=== PATIENT | male | born 1990 | race Caucasian/White ===

== ENCOUNTER 2019-12-28 12:59 | Inpatient (IN) | payer BC, SELFPAY ==
[~2019-12-28 12:59] MED LIST: Iopamidol-370 76% 500 ML 1 ML ONE
[2019-12-28 15:11] VITALS: BMI 26.7
[2019-12-28] MEDS ORDERED: Acetaminophen 325 MG TAB PO PRN (15:16)
[2019-12-28] MEDS ORDERED: Senokot S 8.6-50 MG TAB PO PRN (15:16)
[2019-12-28] MEDS ORDERED: Fentanyl 100 MCG/2 ML VIAL SLOW IVP PRN ×2 (15:19)
[2019-12-28] MEDS ORDERED: Melatonin 3 MG TAB PO PRN (15:22)
[2019-12-28] MEDS: Fentanyl 100 MCG/2 ML VIAL SLOW IVP PRN ×2 (16:00→20:47)
[2019-12-28] MEDS: Sodium Chloride 0.9% 1,000 ML IV SCH (16:00)
[2019-12-28] MEDS ORDERED: Morphine 2 MG/ML VIAL SLOW IVP PRN (16:31)
--- NOTE | 2019-12-28 16:53 | PDOC.HHP ---
Hospitalist HPI - History of Present Illness Epigastric pain History of Present Illness: 29M presents as a transfer from [place] ED for evaluation of epigastic pain x3 days. Reports he noticed some pain after he ate to his epigastric area on but did not feel like the last episode of pancreatitis he had in the past. He reports he ate chips last night and went to bed. When he woke up around 5am, he was nauseated with more pain which wrapped around his abdomen. He reports x1 vomiting. Pain has increased and he reports the pain medicine he received in the ED in [place] only lasted about an hour. His lab work in the ED indicted possible pancreatitis with lipase = 414. Patient reports he drinks alcohol, about 10 drinks per day but has not had any since . Patient was transferred to [place] for admission and further evaluation. Hospitalist ROS - Review of Systems Constitutional: denies: fever, chills, sweats, weakness, malaise, other Eyes: denies: pain, vision change, conjunctivae inflammation, eyelid inflammation, redness, other ENT: denies: ear pain, ear discharge, nose pain, nose discharge, nose congestion, mouth pain, mouth swelling, throat pain, throat swelling, other Respiratory: reports: shortness of breath (Due to epigastric pain) Cardiovascular: denies: chest pain, palpitations, orthopnea, paroxysmal noc. dyspnea, edema, light headedness, other Gastrointestinal: reports: nausea, vomiting, abdominal pain Genitourinary: denies: dysuria, frequency, incontinence, hematuria, retention, other Musculoskeletal: denies: neck pain, shoulder pain, arm pain, back pain, hand pain, leg pain, foot pain, other Skin: denies: rash, lesions, lilliana, bruising, other Neurological: denies: weakness, numbness, incoordination, change in speech, confusion, seizures, other - Medication Medications: Active Medications Generic Name Dose Route Start Last Admin Trade Name Freq PRN Reason Stop Dose Admin Sodium Chloride 1,000 mls @ 100 mls/hr 12/28/19 15:30 12/28/19 16:00 Normal Saline 0.9% IV 1,000 mls .Q10H MAXIMILIANO Administration Hospitalist History - Past Medical History Hepatobiliary: reports: Other Endocrine: reports: Other (hx of pancreatitis) - Social History Smoking Status: Current every day smoker Alcohol: reports: Heavy Drugs: reports: none Living Situation: With Family - Exam General Appearance: awake alert General - other findings: Mild pain distress Eye: PERRL ENT: normocephalic atraumatic Neck: supple, symmetric Heart: RRR, no murmur Respiratory: CTAB, normal chest expansion Gastrointestinal: soft, tender to palpation (epigastric), voluntary guarding Extremities: no edema Skin: normal turgor Neurological: cranial nerve grossly intact Musculoskeletal: normal tone, normal strength Psychiatric: normal affect, A&O x 3 Hospitalist H&P A/P - Problem (1) Pancreatitis, alcoholic, acute Code(s): K85.20 - ALCOHOL INDUCED ACUTE PANCREATITIS WITHOUT NECROSIS OR INFCT Status: Acute (2) Smoker Code(s): F17.200 - NICOTINE DEPENDENCE, UNSPECIFIED, UNCOMPLICATED Status: Chronic (3) Alcohol abuse Code(s): F10.10 - ALCOHOL ABUSE, UNCOMPLICATED Status: Chronic - Plan Plan: #Pancreatitis - U/S RUQ - CT Abd/pelvis w/ contrast - pain medication - NPO - recheck labs in AM - IVF NS 100ml/hr with banana bag per day - ASE protocol PUD prevention; SCDs for DVT prevention Smoking cessation Case discussed with Dr. Singh, agrees to plan
[2019-12-28] MEDS: Morphine 4 MG/ML VIAL SLOW IVP PRN ×2 (16:55→22:42)
--- NOTE | 2019-12-28 17:17 | ULT ---
RIGHT UPPER QUADRANT ULTRASOUND: History: Epigastric pain radiating to the back, nausea, vomiting. Pancreatitis. FINDINGS: The liver, gallbladder, and visualized portions of the pancreas are unremarkable. The common duct rafa sures 3 mm in diameter. There is a 3 cm cyst arising from the superior pole of the right kidney. No f ree fluid is seen in the Taylor's pouch. IMPRESSION: 1. No evidence of cholelithiasis. 2. Right renal cyst. POS: OFF
--- NOTE | 2019-12-28 17:22 | CT ---
CT ABDOMEN WITH CONTRAST CT PELVIS WITH CONTRAST: DATE: 12/28/2019 HISTORY: 29-year-old male with severe abdominal pain, nausea, and vomiting COMPARISON: None TECHNIQUE: IV injection of iodinated contrast media: administered. Oral contrast media:Not administered FINDINGS: There is mild fat stranding consistent with edema around the pancreatic head, body, and uncinate proc ess. The fat stranding representing edema also involves the central upper portion of the mesentery. There is a short linear band of moderate hypodensity at the junction between the body and tail of the pancreas. Exact etiology uncertain, but perhaps this could be focal dilation of the pancreatic duct caliber of 4 mm. No evidence of pseudocyst. Diffusely low hepatic attenuation may or not represent fatty liver. There is a 2.5 cm right renal upper pole cyst. Normal appendix, left kidney, abdominal aorta, adrenals, spleen, and urinary bladder. Small amount of free fluid within the pelvic cavity, probably arising from the upper abdomen. No colonic diverticulitis, small bowel dilation, pneumoperitoneum, pleural effusion, or basilar lower lobe pulmonary consolidation. IMPRESSION: 1. Peripancreatic and mesenteric edema: Evidence for acute pancreatitis. Recommend correlation with s yesica lipase and amylase. 2. Questionable focal dilation of a portion of pancreatic duct. Recommend follow-up..
[2019-12-28] MEDS: Multivitamins, Adult 10 ML, Folic Acid 1 MG, Thiamine HCl 100 MG in Dextrose 5 %-0.45 %... IV SCH (18:32)
[2019-12-28] MEDS: Lorazepam 2 MG/ML VIAL SLOW IVP PRN (18:36)
[2019-12-28] MEDS: Famotidine 20 MG TAB PO SCH (20:59)
[2019-12-29] MEDS: Lorazepam 2 MG/ML VIAL SLOW IVP PRN ×3 (00:45→20:28)
[2019-12-29] MEDS: Fentanyl 100 MCG/2 ML VIAL SLOW IVP PRN ×3 (02:58→17:39)
[2019-12-29] MEDS: Sodium Chloride 0.9% 1,000 ML IV SCH ×2 (05:11→11:29)
[2019-12-29] MEDS: Morphine 4 MG/ML VIAL SLOW IVP PRN ×6 (05:21→21:45)
[2019-12-29 06:20] LABS: #Eosinphils 0.1 thou/uL (0.0-0.7); #Monocytes 0.9 thou/uL (0.11-0.59); #Neutrophils 6.9 thou/uL (1.40-6.50); %Basophils 0.1 % (0.0-1.0); %Eosinophils 1.5 % (0.0-10.0); %Lymphocytes 11.6 % (21.0-51.0); %Monocytes 9.7 % (0.0-10.0); %Neutrophils 77.1 % (42.0-75.0); Mean Corpuscular HGB CONC 35.9 g/dL (32.0-36.0); Mean Corpuscular Hemoglobin 33.4 pg (27.0-31.0); Mean Corpuscular Volume 93.1 fL (78.0-98.0); Mean Platelet Volume 7.5 fL (7.4-10.4); Platelet Count 183 thou/uL (130-400); RBC Distribution Width 10.6 % (11.5-14.5); White Blood Cell (WBC) Count 8.9 thou/uL (4.8-10.8)
[2019-12-29 06:43] LABS: Albumin 4.2 g/dL (3.5-5.0); Alkaline Phosphatase 60 U/L (40-110); Anion Gap 14 mmol/L (10-20); BUN (Urea Nitrogen) 12 mg/dL (8.9-20.6); Bilirubin, Total 0.5 mg/dL (0.2-1.2); Calc. Creatinine Clearance 149 mL/min (70-130); Calcium 9.3 mg/dL (7.8-10.44); Carbon Dioxide 24 mmol/L (22-29); Chloride 104 mmol/L (98-107); Estimated GFR-MDRD Greater than 90; Globulin 2.8 g/dL (2.4-3.5); Glucose 117 mg/dL (70-105); Potassium 3.7 mmol/L (3.5-5.1); Sodium 138 mmol/L (136-145)
[2019-12-29 06:44] LABS: ALT (SGPT) 25 U/L (8-55); AST (SGOT) 20 U/L (5-34); Lipase 183 U/L (8-78)
[2019-12-29] MEDS: Famotidine 20 MG TAB PO SCH ×2 (08:07→20:22)
[2019-12-29] MEDS ORDERED: hydrALAZINE 20 MG/ML VIAL SLOW IVP PRN (10:23)
[2019-12-29] MEDS ORDERED: Labetalol HCl 100 MG/20 ML VIAL SLOW IVP PRN (10:23)
--- NOTE | 2019-12-29 10:37 | PDOC.HOSPP ---
- Subjective Encounter Date: 12/29/19 Encounter Time: 10:24 Subjective: pain meds not adequate. asked for dilaudid - Objective Vital Signs & Weight: Vital Signs (12 hours) Temp Pulse Resp BP Pulse Ox 12/29/19 08:00 97 12/29/19 07:28 98.5 F 55 L 20 170/102 H 97 12/29/19 05:30 98.7 F 56 L 18 156/94 H 95 12/29/19 00:45 98.3 F 58 L 16 158/93 H 98 Weight Weight 186 lb 9.6 oz Result Diagrams: 12/29/19 05:58 12/29/19 05:58 Hospitalist ROS - Medication Medications: Active Medications Generic Name Dose Route Start Last Admin Trade Name Freq PRN Reason Stop Dose Admin Famotidine 20 mg 12/28/19 21:00 12/29/19 08:07 Famotidine 20 Mg Tab PO 20 mg BID MAXIMILIANO Administration Fentanyl 25 mcg 12/28/19 16:32 12/29/19 08:07 Fentanyl 100 Mcg/2 Ml Vial SLOW IVP 25 mcg Q2H PRN Administration Breakthrough Pain Sodium Chloride 1,000 mls @ 100 mls/hr 12/28/19 15:30 12/29/19 05:11 Normal Saline 0.9% IV 1,000 mls .Q10H MAXIMILIANO Administration Multivitamins 10 ml/ Folic 1,011.2 mls @ 100 mls/hr 12/28/19 18:00 12/28/19 18:32 Acid 1 mg/ Thiamine HCl 100 mg IV 1,011.2 mls / Dextrose/Sodium Chloride Q24HR MAXIMILIANO Administration Lorazepam 1 mg 12/28/19 15:22 12/29/19 00:45 Lorazepam 2 Mg/Ml Vial SLOW IVP 1 mg Q6H PRN Administration Anxiety/Agitation Morphine Sulfate 4 mg 12/28/19 16:31 12/29/19 09:51 Morphine 4 Mg/Ml Vial SLOW IVP 4 mg Q4H PRN Administration Severe Pain (7-10) Sodium Chloride 10 ml 12/28/19 15:16 12/28/19 18:39 Flush - Normal Saline 10 Ml Syringe IVF 10 ml PRN PRN Administration Saline Flush - Exam General Appearance: awake alert Neck: no JVD Heart: RRR, no murmur Respiratory: CTAB, no wheezes Gastrointestinal: tender to palpation Gastrointestinal - other findings: absent bowel sounds Extremities: no edema Hosp A/P (1) HTN (hypertension) Code(s): I10 - ESSENTIAL (PRIMARY) HYPERTENSION Status: Acute (2) Pancreatitis, alcoholic, acute Code(s): K85.20 - ALCOHOL INDUCED ACUTE PANCREATITIS WITHOUT NECROSIS OR INFCT Status: Acute (3) Alcohol abuse Code(s): F10.10 - ALCOHOL ABUSE, UNCOMPLICATED Status: Chronic (4) Smoker Code(s): F17.200 - NICOTINE DEPENDENCE, UNSPECIFIED, UNCOMPLICATED Status: Chronic - Plan morphine iv for pain prn apressolin/labtalol for HTN cont NPO/iv fluids daily banana bag
[2019-12-29] MEDS ORDERED: FLU VACC QS2020-21(6MOS UP)/PF 60 MCG/0.5 ML SYRINGE IM ONE (16:00)
[2019-12-29] MEDS: Multivitamins, Adult 10 ML, Folic Acid 1 MG, Thiamine HCl 100 MG in Dextrose 5 %-0.45 %... IV SCH (20:19)
[2019-12-30] MEDS: Morphine 4 MG/ML VIAL SLOW IVP PRN ×6 (00:34→17:09)
[2019-12-30] MEDS: Sodium Chloride 0.9% 1,000 ML IV SCH ×3 (05:12→17:08)
[2019-12-30] MEDS: Famotidine 20 MG TAB PO SCH ×2 (09:13→22:02)
--- NOTE | 2019-12-30 09:32 | PDOC.HOSPP ---
- Subjective Encounter Date: 12/30/19 Encounter Time: 09:29 Subjective: no emesis, abd pain much improved - Objective Vital Signs & Weight: Vital Signs (12 hours) Temp Pulse Resp BP BP BP Pulse Ox 12/30/19 07:16 97.9 F 74 17 133/88 97 12/30/19 03:30 98.5 F 70 18 148/97 H 148/97 H 96 12/30/19 00:43 98.2 F 64 18 162/103 H 162/103 H 96 Weight Weight 186 lb 9.6 oz I&O: 12/29/19 12/30/19 12/31/19 06:59 06:59 06:59 Intake Total 1250 Output Total 450 Balance 800 Result Diagrams: 12/29/19 05:58 12/29/19 05:58 Hospitalist ROS - Medication Medications: Active Medications Generic Name Dose Route Start Last Admin Trade Name Freq PRN Reason Stop Dose Admin Acetaminophen 650 mg 12/28/19 15:16 12/30/19 05:16 Acetaminophen 325 Mg Tab PO 650 mg Q4H PRN Administration Headache/Fever/Mild Pain (1-3) Famotidine 20 mg 12/28/19 21:00 12/30/19 09:13 Famotidine 20 Mg Tab PO 20 mg BID MAXIMILIANO Administration Sodium Chloride 1,000 mls @ 100 mls/hr 12/28/19 15:30 12/30/19 09:15 Normal Saline 0.9% IV Not Given .Q10H MAXIMILIANO Multivitamins 10 ml/ Folic 1,011.2 mls @ 100 mls/hr 12/28/19 18:00 12/29/19 20:19 Acid 1 mg/ Thiamine HCl 100 mg IV 1,011.2 mls / Dextrose/Sodium Chloride Q24HR MAXIMILIANO Administration Lorazepam 1 mg 12/28/19 15:22 12/29/19 20:28 Lorazepam 2 Mg/Ml Vial SLOW IVP 1 mg Q6H PRN Administration Anxiety/Agitation Melatonin 6 mg 12/28/19 15:22 12/30/19 00:38 Melatonin 3 Mg Tab PO 6 mg HSPRN PRN Administration Insomnia Morphine Sulfate 4 mg 12/29/19 10:38 12/30/19 09:14 Morphine 4 Mg/Ml Vial SLOW IVP 4 mg Q3H PRN Administration Pain Sodium Chloride 10 ml 12/28/19 15:16 12/28/19 18:39 Flush - Normal Saline 10 Ml Syringe IVF 10 ml PRN PRN Administration Saline Flush - Exam General Appearance: awake alert Neck: no JVD Heart: RRR, no murmur Respiratory: CTAB Gastrointestinal: soft, non-tender, normal bowel sounds Extremities: no edema Hosp A/P (1) HTN (hypertension) Code(s): I10 - ESSENTIAL (PRIMARY) HYPERTENSION Status: Acute (2) Pancreatitis, alcoholic, acute Code(s): K85.20 - ALCOHOL INDUCED ACUTE PANCREATITIS WITHOUT NECROSIS OR INFCT Status: Acute Qualifiers: Acute pancreatitis complication: unspecified Qualified Code(s): K85.20 - Alcohol induced acute pancreatitis without necrosis or infection (3) Alcohol abuse Code(s): F10.10 - ALCOHOL ABUSE, UNCOMPLICATED Status: Chronic (4) Smoker Code(s): F17.200 - NICOTINE DEPENDENCE, UNSPECIFIED, UNCOMPLICATED Status: Chronic - Plan morphine iv for pain prn apressolin/labtalol for HTN start liquid diet BMP/Lipase
[2019-12-30] MEDS: Ondansetron PF 4 MG/2 ML Vial IVP PRN (09:39)
[2019-12-30] MEDS: Lorazepam 2 MG/ML VIAL SLOW IVP PRN ×2 (10:19→22:02)
[2019-12-30 11:20] LABS: Anion Gap 11 mmol/L (10-20); BUN (Urea Nitrogen) 10 mg/dL (8.9-20.6); Calc. Creatinine Clearance 154 mL/min (70-130); Calcium 9.2 mg/dL (7.8-10.44); Carbon Dioxide 28 mmol/L (22-29); Chloride 103 mmol/L (98-107); Estimated GFR-MDRD Greater than 90; Glucose 86 mg/dL (70-105); Lipase 69 U/L (8-78); Potassium 3.6 mmol/L (3.5-5.1); Sodium 138 mmol/L (136-145)
--- NOTE | 2019-12-30 14:57 | PDOC.BPN ---
- Brief Progress Note Encounter Date: 12/30/19 Encounter Time: 14:56 lipase normal, advaance diet
[2019-12-30] MEDS: Multivitamins, Adult 10 ML, Folic Acid 1 MG, Thiamine HCl 100 MG in Dextrose 5 %-0.45 %... IV SCH (18:40)
[2019-12-31] MEDS: Sodium Chloride 0.9% 1,000 ML IV SCH ×2 (04:53→13:30)
[2019-12-31] MEDS: Famotidine 20 MG TAB PO SCH ×2 (08:03→21:33)
[2019-12-31] MEDS: Morphine 4 MG/ML VIAL SLOW IVP PRN ×5 (08:04→21:34)
--- NOTE | 2019-12-31 09:05 | PDOC.HOSPP ---
- Subjective Encounter Date: 12/31/19 Encounter Time: 09:04 Subjective: complains off recurrent abd pain "over my pancreas" - Objective Vital Signs & Weight: Vital Signs (12 hours) Temp Pulse Resp BP BP Pulse Ox 12/31/19 08:29 97 12/31/19 07:32 97.7 F 52 L 16 161/98 H 97 12/31/19 04:14 97.8 F 78 18 118/77 96 12/31/19 04:00 118/77 12/31/19 00:00 141/83 H 141/83 H 12/30/19 23:53 98.4 F 82 18 160/105 H 97 Weight Weight 186 lb 9.6 oz I&O: 12/30/19 12/31/19 01/01/20 06:59 06:59 06:59 Intake Total 1250 Output Total 450 Balance 800 Result Diagrams: 12/29/19 05:58 12/30/19 10:34 Hospitalist ROS - Medication Medications: Active Medications Generic Name Dose Route Start Last Admin Trade Name Freq PRN Reason Stop Dose Admin Acetaminophen 650 mg 12/28/19 15:16 12/30/19 05:16 Acetaminophen 325 Mg Tab PO 650 mg Q4H PRN Administration Headache/Fever/Mild Pain (1-3) Famotidine 20 mg 12/28/19 21:00 12/31/19 08:03 Famotidine 20 Mg Tab PO 20 mg BID MAXIMILIANO Administration Sodium Chloride 1,000 mls @ 100 mls/hr 12/28/19 15:30 12/31/19 04:53 Normal Saline 0.9% IV Not Given .Q10H MAXIMILIANO Multivitamins 10 ml/ Folic 1,011.2 mls @ 100 mls/hr 12/28/19 18:00 12/30/19 18:40 Acid 1 mg/ Thiamine HCl 100 mg IV 1,011.2 mls / Dextrose/Sodium Chloride Q24HR MAXIMILIANO Administration Lorazepam 1 mg 12/28/19 15:22 12/30/19 22:02 Lorazepam 2 Mg/Ml Vial SLOW IVP 1 mg Q6H PRN Administration Anxiety/Agitation Melatonin 6 mg 12/28/19 15:22 12/30/19 00:38 Melatonin 3 Mg Tab PO 6 mg HSPRN PRN Administration Insomnia Morphine Sulfate 4 mg 12/29/19 10:38 12/31/19 08:04 Morphine 4 Mg/Ml Vial SLOW IVP 4 mg Q3H PRN Administration Pain Ondansetron HCl 4 mg 12/28/19 15:20 12/30/19 09:39 Ondansetron Pf 4 Mg/2 Ml Vial IVP 4 mg Q6H PRN Administration Nausea/Vomiting Sodium Chloride 10 ml 12/28/19 15:16 12/28/19 18:39 Flush - Normal Saline 10 Ml Syringe IVF 10 ml PRN PRN Administration Saline Flush - Exam General Appearance: NAD, awake alert Neck: no JVD Heart: RRR, no murmur Respiratory: CTAB Gastrointestinal: soft, normal bowel sounds, no guarding, tender to palpation Extremities: no edema Hosp A/P (1) HTN (hypertension) Code(s): I10 - ESSENTIAL (PRIMARY) HYPERTENSION Status: Acute (2) Pancreatitis, alcoholic, acute Code(s): K85.20 - ALCOHOL INDUCED ACUTE PANCREATITIS WITHOUT NECROSIS OR INFCT Status: Acute Qualifiers: Acute pancreatitis complication: unspecified Qualified Code(s): K85.20 - Alcohol induced acute pancreatitis without necrosis or infection (3) Alcohol abuse Code(s): F10.10 - ALCOHOL ABUSE, UNCOMPLICATED Status: Chronic (4) Smoker Code(s): F17.200 - NICOTINE DEPENDENCE, UNSPECIFIED, UNCOMPLICATED Status: Chronic - Plan consider GI consult morphine iv for pain lab lipase, amylase, hepatic profile strict NPO
[2019-12-31 10:03] LABS: ALT (SGPT) 34 U/L (8-55); AST (SGOT) 51 U/L (5-34); Albumin 4.2 g/dL (3.5-5.0); Alkaline Phosphatase 66 U/L (40-110); Bilirubin, Direct 0.3 mg/dL (0.1-0.3); Bilirubin, Total 0.7 mg/dL (0.2-1.2); Lipase 93 U/L (8-78); Protein, Total 7.2 g/dL (6.0-8.3)
[2019-12-31] MEDS: Multivitamins, Adult 10 ML, Folic Acid 1 MG, Thiamine HCl 100 MG in Dextrose 5 %-0.45 %... IV SCH (19:52)
[2019-12-31] MEDS: Ondansetron PF 4 MG/2 ML Vial IVP PRN (21:35)
[2020-01-01] MEDS: Sodium Chloride 0.9% 1,000 ML IV SCH ×3 (00:49→23:01)
[2020-01-01] MEDS: Lorazepam 2 MG/ML VIAL SLOW IVP PRN ×3 (00:50→23:01)
[2020-01-01] MEDS: Famotidine 20 MG TAB PO SCH ×2 (08:45→23:00)
--- NOTE | 2020-01-01 09:21 | PDOC.HOSPP ---
- Subjective Encounter Date: 01/01/20 Encounter Time: 09:16 Subjective: no abd pain, nausea - Objective Vital Signs & Weight: Vital Signs (12 hours) Temp Pulse Resp BP BP BP Pulse Ox 01/01/20 07:34 97.4 F L 49 L 18 121/74 95 01/01/20 04:00 97.6 F 50 L 18 130/82 130/82 96 01/01/20 00:00 97.7 F 53 L 18 146/85 H 133/88 96 Weight Weight 186 lb 9.6 oz Result Diagrams: 12/29/19 05:58 12/30/19 10:34 Hospitalist ROS - Medication Medications: Active Medications Generic Name Dose Route Start Last Admin Trade Name Freq PRN Reason Stop Dose Admin Acetaminophen 650 mg 12/28/19 15:16 12/30/19 05:16 Acetaminophen 325 Mg Tab PO 650 mg Q4H PRN Administration Headache/Fever/Mild Pain (1-3) Famotidine 20 mg 12/28/19 21:00 01/01/20 08:45 Famotidine 20 Mg Tab PO Not Given BID MAXIMILIANO Sodium Chloride 1,000 mls @ 100 mls/hr 12/28/19 15:30 01/01/20 08:45 Normal Saline 0.9% IV 1,000 mls .Q10H MAXIMILIANO Administration Multivitamins 10 ml/ Folic 1,011.2 mls @ 100 mls/hr 12/28/19 18:00 12/31/19 19:52 Acid 1 mg/ Thiamine HCl 100 mg IV 1,011.2 mls / Dextrose/Sodium Chloride Q24HR MAXIMILIANO Administration Lorazepam 1 mg 12/28/19 15:22 01/01/20 08:44 Lorazepam 2 Mg/Ml Vial SLOW IVP 1 mg Q6H PRN Administration Anxiety/Agitation Melatonin 6 mg 12/28/19 15:22 12/30/19 00:38 Melatonin 3 Mg Tab PO 6 mg HSPRN PRN Administration Insomnia Morphine Sulfate 4 mg 12/29/19 10:38 12/31/19 21:34 Morphine 4 Mg/Ml Vial SLOW IVP 4 mg Q3H PRN Administration Pain Ondansetron HCl 4 mg 12/28/19 15:20 12/31/19 21:35 Ondansetron Pf 4 Mg/2 Ml Vial IVP 4 mg Q6H PRN Administration Nausea/Vomiting Sodium Chloride 10 ml 11/08/20 15:16 12/28/19 18:39 Flush - Normal Saline 10 Ml Syringe IVF 10 ml PRN PRN Administration Saline Flush - Exam General Appearance: awake alert Neck: no JVD Heart: RRR, no murmur Respiratory: CTAB Gastrointestinal: soft, non-tender, non-distended, normal bowel sounds Extremities: no edema Hosp A/P (1) HTN (hypertension) Code(s): I10 - ESSENTIAL (PRIMARY) HYPERTENSION Status: Acute (2) Pancreatitis, alcoholic, acute Code(s): K85.20 - ALCOHOL INDUCED ACUTE PANCREATITIS WITHOUT NECROSIS OR INFCT Status: Acute Qualifiers: Acute pancreatitis complication: unspecified Qualified Code(s): K85.20 - Alcohol induced acute pancreatitis without necrosis or infection (3) Alcohol abuse Code(s): F10.10 - ALCOHOL ABUSE, UNCOMPLICATED Status: Chronic (4) Smoker Code(s): F17.200 - NICOTINE DEPENDENCE, UNSPECIFIED, UNCOMPLICATED Status: Chronic - Plan consider GI consult if pain recurs morphine iv for pain lab lipase, full liquids
[2020-01-01] MEDS: Multivitamins, Adult 10 ML, Folic Acid 1 MG, Thiamine HCl 100 MG in Dextrose 5 %-0.45 %... IV SCH (18:57)
[2020-01-02 07:07] VITALS: BP 130/87; TEMP 97.5
[2020-01-02] MEDS: Famotidine 20 MG TAB PO SCH (09:18)
[2020-01-02] MEDS: Sodium Chloride 0.9% 1,000 ML IV SCH (09:20)
--- NOTE | 2020-01-02 10:00 | DIS ---
DATE OF ADMISSION: 12/28/2019 DATE OF DISCHARGE: 01/02/2020 PRIMARY CARE PROVIDER: None. DISPOSITION: Discharged home. FINAL DIAGNOSES: Acute pancreatitis, alcohol abuse, nicotine dependence, episodic hypertension. DISCHARGE MEDICATIONS: None. CODE STATUS: Full. PENDING AT TIME OF DISCHARGE: Nothing. DIET: As tolerated. HOSPITAL COURSE: The patient was admitted with acute abdominal pain for 3 days. He reported that he had some very significant alcohol consumption. His initial lipase was 414. He was placed in a hospital n.p.o., IV fluids, and IV morphine for pain. CT of the abdomen revealed mild fat stranding with edema around the pancreatic head. Abdominal ultrasound revealed no cholelithiasis or cholecystitis. His comprehensive metabolic profile on 12/29/2019 was normal except for blood sugar of 173. His lipase was 183. On 12/29, his lipase was normal. He was started on a liquid diet and subsequently a low-fat diet. The next morning, he had pain. His lipase was re-evaluated. It was 93. He was placed on n.p.o. On 12/31, his lipase was again normal. His abdomen was benign. He was started on clear liquids and then low fat diet. This morning, he has no abdominal pain. His lipase is normal. He is feeling well. Alcohol consumption has been discussed with him. He had no signs and symptoms of alcohol withdrawal. He was given multivitamins during his hospital stay. He is being discharged. He was told that he needs to find a doctor for followup. He needs to abstain from alcohol consumption. CONSULTATIONS: No consultations. PROCEDURES: No procedures. Job ID: [id number]
== END 2020-01-02 09:59 | disposition home or self-care (01) | DRG 439 ==
LOC: T4-A 14:45
PROVIDERS: ADMIT Student in an Organized Health Care Education/Training Program; ATTEND Internal Medicine
DX: K85.20 Alcohol induced acute pancreatitis without necrosis or infection (principal); F10.188 Alcohol abuse with other alcohol-induced disorder; F17.200 Nicotine dependence, unspecified, uncomplicated; F10.10 Alcohol abuse, uncomplicated; I10 Essential (primary) hypertension
CPT/HCPCS: 36415; 74177; 76705; 80048; 80053; 80076; 82150; 83690; 85025; J2060; J2270; J2405; J3010; J3411; J7042; Q9967